=== PATIENT | female | born 1950 | race Caucasian/White ===

== ENCOUNTER 2016-12-04 00:01 | Inpatient (IN) | payer MEDICARE, OTHER ==
[~2016-12-04] VITALS: Ht 154.9 cm; Wt 51.2 kg
--- NOTE | ~2016-12-04 | OR ---
PATIENT'S NAME: CARLYN KENT [facility] AGE: 66 Y [address] ROOM: [place] [address] LOCATION: CU ADMIT DATE: 12/04/2016 OR/Procedure Report DISCHARGE DATE: FAMILY PHYSICIAN: Bharathi Carreno PA-C ATTENDING PHYSICIAN: MARCEL MCKENZIE V SURGEON: Gabriela Boyd MD TRAUMA THERAPIST: DATE OF PROCEDURE: 12/12/2016 PROCEDURE NAME: Rapid sequence endotracheal intubation. INDICATION: Worsening acute respiratory failure in a patient with CMV pneumonitis. PROCEDURE SUMMARY: Verbal permit was obtained prior to the procedure. The patient's oxygen saturations were in the low 90s, upper 80s, while on 90% high- flow oxygen. Adequate sedation and analgesia was obtained with 5 mg of Versed, 200 mcg of fentanyl, and 10 mg of etomidate. A GlideScope with a #3 blade was inserted into the oropharynx, at which time the vocal cords were visualized. A 7.5-Pashto endotracheal tube was inserted and visualized going through the vocal cords. The stylet was removed. The end-tidal CO2 was in the mid 40s as measured by a CO2 meter. Breath sounds were heard in both lung cast equally. The endotracheal tube was placed at 24 cm, measured at the teeth. COMPLICATIONS: None. ESTIMATED BLOOD LOSS: None. GABRIELA BOYD MD [facility]/modl /[id number] d: 12/12/162219 t: 12/15/16 0712, OPERATIVE SUMMARY
--- NOTE | ~2016-12-04 | CON ---
PATIENT'S NAME: CARLYN KENT [facility] AGE: 66 Y [address] ROOM: [place] [address] LOCATION: GPCU ADMIT DATE: 12/04/2016 Consultation DISCHARGE DATE: FAMILY PHYSICIAN: Bharathi Carreno PA-C ATTENDING PHYSICIAN: MARCEL MCKENZIE V DATE OF CONSULTATION: 12/07/2016 REFERRING PHYSICIAN: Akiko Duenas MD REASON FOR CONSULTATION: Sacral pressure ulcer and a left lower extremity wound. HISTORY OF PRESENT ILLNESS: This is a 66-year-old female patient who was admitted to [facility] with acute hypoxic respiratory failure and pneumonia. She has a significant history of steroid-dependent rheumatoid arthritis, chronic pancreatitis, chronic pain syndrome, steroid-induced diabetes, essential hypertension, and pyoderma gangrenosum. Her sacral pressure ulcer has been present since 11/21/2016. She has been seeing [facility]. She normally wears a Promogran Sandhya antimicrobial dressing to the site. She reports the site has improved significantly since its first appearance. She has a history of pyoderma gangrenosum and had a skin graft by Dr. Pickens last summer to her right lower extremity. Currently, her pyoderma gangrenosum to her left lower extremity has also been treated by [facility]. She uses Santyl and a foam dressing. She also notes improvement in those ulcers. They have been present for "months." The patient is denying pain, however, reports she does have a pain patch and uses hydrocodone at home. She is denying chest pain. She admits to shortness of breath. She admits to fatigue. She lives in [place]. PAST MEDICAL HISTORY: 1. Rheumatoid arthritis, on chronic prednisone. 2. Chronic pancreatitis. 3. Chronic pain with neurostimulator. 4. Pyoderma gangrenosum. 5. Steroid-induced diabetes. 6. Essential hypertension. 7. Migraines. 8. Hypercholesteremia. 9. Osteoarthritis. 10. Heartburn. 11. Anxiety. PATIENT'S NAME: CARLYN KENT [facility] AGE: 66 Y [address] ROOM: [place] [address] LOCATION: GPCU ADMIT DATE: 12/04/2016 Consultation DISCHARGE DATE: FAMILY PHYSICIAN: Bharathi Carreno PA-C ATTENDING PHYSICIAN: MARCEL MCKENZIE V 12. Hypothyroidism. PAST SURGICAL HISTORY: 1. section x5. 2. Lumbar back surgery x2. 3. Cholecystectomy. 4. Removal of stone from common bile duct. 5. Breast reduction. 6. Bilateral carpal tunnel surgery. 7. Skin grafting to right lower extremity. FAMILY HISTORY: The patient believes her mother suffered from rheumatoid arthritis. SOCIAL HISTORY: The patient lives in [place]. She is disabled. She is a former smoker. She denies alcohol or illicit drug use. ALLERGIES: CODEINE, LISINOPRIL, AND MORPHINE. CURRENT MEDICATIONS: Please refer to the medication administration record. REVIEW OF SYSTEMS: A 10-point review of systems was completed and all were negative except as mentioned above in the HPI. PHYSICAL EXAMINATION: VITAL SIGNS: Temperature 96.9, pulse 101, respirations 18, blood pressure 130/76, and oxygen 94%. Height 5 feet 1 inch and weight 49.1 kg. GENERAL: The patient is alert and orientated x3. Appears pale. Short of breath on exertion. Thin in nature. HEENT: Head; normocephalic and atraumatic. Oral mucosa intact. NEUROLOGIC: Grossly nonfocal. HEART: Tachycardia noted. GASTROINTESTINAL: Abdomen is soft and nontender. EXTREMITIES: +2 pedal pulses. No edema noted. Feet are cool to touch. Capillary refill intact. MUSCULOSKELETAL: Obvious joint abnormalities from rheumatoid arthritis. SKIN: Left sacrum has a large superficial stage III pressure ulcer. The entire area measures 12.0 cm width x 9.5 cm length x 0.2 cm depth. The majority of the wound bed is covered with adherent yellow slough. Hoskins tissue is noted to the wound margins. Periwound is intact. There is a small amount of serous exudate noted. No induration or fluctuance noted. No odor. No PATIENT'S NAME: CARLYN KENT [facility] AGE: 66 Y [address] ROOM: [id number] [place], [place] [address] LOCATION: GPCU ADMIT DATE: 12/04/2016 Consultation DISCHARGE DATE: FAMILY PHYSICIAN: Bharathi Carreno PA-C ATTENDING PHYSICIAN: MARCEL MCKENZIE V purulent exudate. To the patient's left anterior lower leg, she has 2 small pyoderma ulcers. The distal, larger ulcer, measures 1.0 cm width x 2.0 cm length x 0.2 cm depth. Wound bed is covered with a dry yellow slough with a small amount of moist pink tissue. Periwound is intact. No purulence noted. Heels intact. LABORATORY DATA: Sodium 136, potassium 3.3, chloride 100, bicarbonate 29, BUN 13, creatinine 0.4, and glucose 152. Hemoglobin 8.6, white blood cell count 7.4, hematocrit 27.1, and platelets 247,000. Wound culture showed no bacteria. ASSESSMENT AND PLAN: Again, this is a 66-year-old female patient who was admitted to [facility] with acute hypoxic respiratory failure and pneumonia. Wound Care was consulted to evaluate and assess a sacral pressure ulcer and left lower extremity pyoderma ulcers. 1. Stage III full-thickness pressure ulcer to the left sacrum present on admission to [facility]. The patient uses Promogran Sandhya. We currently do not carry that dressing. We discussed different options. The patient did have an Allevyn foam dressing applied to this site on Thursday. She is comfortable in continuing that. I did change the Allevyn dressing. The patient is to follow up with [facility] on discharge. She is to continue pressure redistribution measures and turn herself in bed q.2 hours side to side. She is well aware and able to turn herself in bed. Dietary is on board. The patient is getting supplements with each meal. 2. Pyoderma gangrenosum to the left lower extremity. Improving per patient. We will apply Aquacel and a Mepilex foam dressing, changing twice per week. The patient is to continue to follow up with [facility] on discharge. 3. Rheumatoid arthritis. The patient on prednisone. Hospitalist is managing. 4. Severe protein-calorie malnutrition. Dietary is on board. The patient is getting supplements with meals. 5. Acute hypoxic respiratory failure. Hospitalist is managing. Pulmonology on board. I would like to thank Dr. Duenas for this consultation. CHERRI LOPEZ APRN FOR MD DHARA PENA/modl PATIENT'S NAME: CARLYN KENT [facility] AGE: 66 Y [address] ROOM: [id number] [place] [id number] [facility] ADMIT DATE: 12/04/2016 Consultation DISCHARGE DATE: FAMILY PHYSICIAN: Bharathi Carreno PA-C ATTENDING PHYSICIAN: MARCEL MCKENZIE V /[id number] d: 12/08/16 1302 t: 12/19/16 1812, CONSULTATION REPORT
--- NOTE | ~2016-12-04 | CON ---
PATIENT'S NAME: CARLYN KENT [facility] AGE: 66 Y [address] ROOM: [address] [place], [place] [address] LOCATION: GICU ADMIT DATE: 12/04/2016 Consultation DISCHARGE DATE: 12/16/2016 FAMILY PHYSICIAN: Bharathi Carreno PA-C ATTENDING PHYSICIAN: Saman Urena DATE OF CONSULTATION: 12/04/2016 REFERRING PHYSICIAN: Alan Ray DO INDICATION: Abnormal CT with new interstitial findings. SUBJECTIVE: This is a 66-year-old female, who has been ill with low blood sugars, fatigue, weight loss, poor appetite for over a month now, who was transferred here for a higher level of care from [place] after CT of the abdomen done for nausea on day 2 of her hospital stay showed new lower lung infiltrates. She has extensive history of rheumatoid arthritis since age of 41, which she was followed by Dr. Cottrell for and also a history of long-term immunosuppression. Most recently, her rheumatoid arthritis regimen has been Plaquenil, prednisone, and she recently had Remicade infusions initiated. She feels her issues all started when her prednisone dose was adjusted a month ago. She has a history of seeing a quill collector, which she last saw 2 years ago. She has a history of lung nodules with biopsy performed on June 07, 2014, showing no malignancy. The patient reports that she was told the nodules were all secondary to her rheumatoid arthritis, and she has not had any further followup. She denies any history of asthma, COPD, PE, DVT. She is a smoker for 30 years and quit 20 years ago. She denies any history of PFTs, although her record shows she might have had some in [place]. She reports that she was recently started on oxygen at night and reports excessive daytime sleepiness but feels she had a sleep study done, that was normal recently. She has noted worsening shortness of breath, which her family feels has been significant over the last month. She denies any cough, wheezing, hemoptysis, or edema. She does not use inhalers at home. She was noted to be febrile starting yesterday with a temperature of 102. PAST MEDICAL HISTORY: 1. Rheumatoid arthritis. 2. Immunosuppression. 3. Pyoderma gangrenosum. 4. Chronic pancreatitis. 5. Chronic pain with a neurostimulator. 6. History of lung nodules with history of lung biopsy. 7. Diabetes. 8. Hypertension. PATIENT'S NAME: CARLYN KENT [facility] AGE: 66 Y [address] ROOM: [id number] [place], [place] [address] LOCATION: GICU ADMIT DATE: 12/04/2016 Consultation DISCHARGE DATE: 12/16/2016 FAMILY PHYSICIAN: Bharathi Carreno PA-C ATTENDING PHYSICIAN: Saman Urena ALLERGIES: SEE MAR. MEDICATIONS: See DEC. FAMILY HISTORY: Negative for heart disease or lung disease. SOCIAL HISTORY: She has a history of tobacco use for 30 years and quit 20 years ago. She denies any alcohol use. REVIEW OF SYSTEMS: A 12-point review of systems is negative except for what is noted in the HPI. PHYSICAL EXAMINATION: VITAL SIGNS: Blood pressure 137/58, pulse 83, respirations 14, temp 97.6. She is 93% on 3 L nasal cannula. GENERAL: This is a 66-year-old, well developed, well nourished, ill and elderly appearing female, in no acute distress at the time of exam. She is alert and oriented x3. HEENT: Head: Normocephalic and atraumatic. Eyes are clear. NECK: Supple. No adenopathy. No carotid bruits or JVD. LUNGS: Bilateral crackles without wheezes. HEART: Regular rate and rhythm without murmur, gallop, or rub. ABDOMEN: Soft, nontender, nondistended. Bowel sounds x4. EXTREMITIES: No cyanosis, clubbing, or edema. DIAGNOSTIC DATA: Includes sodium 136, potassium 3.1, BUN 8, creatinine 0.5, glucose 63, calcium 7.3. WBC 7.9, hemoglobin 8.5, hematocrit 26.5, platelets 274. ASSESSMENT: 1. Abnormal chest CT with bilateral infiltrates and cystic lesion, which were personally reviewed by Dr. Boyd. This is concerning for atypical infection versus rheumatoid arthritis versus interstitial lung disease. 2. Acute respiratory failure due to abnormal chest CT with bilateral infiltrates and cystic lesion. 3. Rheumatoid arthritis, on multiple medications. 4. Chronic immunosuppression. 5. High-risk medications. 6. Nocturnal hypoxia without obstructive sleep apnea. 7. History of restrictive lung disease and pulmonary fibrosis. PATIENT'S NAME: CARLYN KENT [facility] AGE: 66 Y [address] ROOM: [place] [address] LOCATION: GICU ADMIT DATE: 12/04/2016 Consultation DISCHARGE DATE: 12/16/2016 FAMILY PHYSICIAN: Bharathi Carreno PA-C ATTENDING PHYSICIAN: Saman Urena PLAN: We will plan for bronchoscopy with BAL and transbronchial biopsies. Indications, risks, benefits, and alternatives were discussed with the patient, who agreed to the procedure. We will have her be n.p.o. after midnight. She will continue with her rheumatoid arthritis medications, IV antibiotics, incentive spirometer, and flutter valve. Titrate FiO2 as tolerated. Further recommendations will be made after the results of the procedure available. Thank you for the consult and opportunity to participate in this patient's care. CHERRI LR APRN FOR GABRIELA BOYD MD [facility]/modl /[id number] d: 12/29/162126 t: 12/30/16 0932, CONSULTATION REPORT
--- NOTE | ~2016-12-04 | CON ---
PATIENT'S NAME: CARLYN KENT [facility] AGE: 66 Y [address] ROOM: [place] [address] LOCATION: GICU ADMIT DATE: 12/04/2016 Consultation DISCHARGE DATE: 12/16/2016 FAMILY PHYSICIAN: Bharathi Carreno PA-C ATTENDING PHYSICIAN: Saman Urena DATE OF CONSULTATION: 12/16/2016 REFERRING PHYSICIAN: Alan Ray DO PALLIATIVE MEDICINE CONSULT LOCATION: ICU Room [facility]. REFERRING PROVIDER: Dannie Quinones MD CHIEF COMPLAINT: Palliative care referral for family support and goals of care discussion. HISTORY OF PRESENT ILLNESS: The patient is a 66-year-old female, who is admitted from the [facility] with hypoxia, being treated for pneumonia. The patient was initially treated on the progressive care unit, but due to changes in respiratory status, she did require intubation on December 12, 2016. The patient does have a long history of rheumatoid arthritis and is steroid dependent as well as chronic pancreatitis. Of note while in [place], the patient did undergo a CT scan of her abdomen and pelvis to rule out pancreatitis. This was negative, but the CT scan did show a new interstitial left lung infiltrate. 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 Due to her chronic immunosuppression and overall frail condition, her prognosis was quite guarded. Family did report that the patient had been living alone, and they had noted she had been declining over the last 2 to 3 months with increasing fatigue, weakness, weight loss, and poor appetite. At the time of consultation, the patient is sedated with Versed and is on Nimbex drip due to poor tolerance of mechanical ventilation throughout the night. She is not requiring any vasopressors at this time and has quite a large number of family members at bedside at this time. Due to her poor prognosis, Palliative Care has been consulted to assist family with goals of care discussion. PREVIOUS OPERATIONS: 1. x5. 2. TVH. 3. Tennis elbow repair. PATIENT'S NAME: CARLYN KENT [facility] AGE: 66 Y [address] ROOM: [place] [address] LOCATION: GICU ADMIT DATE: 12/04/2016 Consultation DISCHARGE DATE: 12/16/2016 FAMILY PHYSICIAN: Bharathi Carreno PA-C ATTENDING PHYSICIAN: Saman Urena 4. Lumbar back surgery x2. 5. Cholecystectomy. 6. Stone removal from the common bile duct. 7. Breast reduction. 8. Bilateral carpal tunnel surgery. PAST MEDICAL HISTORY: 1. Long-standing rheumatoid arthritis, is steroid dependent. 2. Pyoderma gangrenosum. 3. Chronic pancreatitis. 4. Chronic pain with neurostimulator. 5. Steroid dependence. 6. Sacral decubitus pressure ulcer and left walton decubitus ulcer, both present on admission. 7. Steroid-induced diabetes mellitus. 8. History of lung nodules. 9. Osteoporosis. 10. Hypertension. MEDICATIONS: Please see current MAR. ALLERGIES: TO LISINOPRIL, MORPHINE, AND CODEINE. SOCIAL HISTORY: The patient is . She lives in her own home with her kids checking and assisting with getting to doctor's appointments. Does have a distant history of tobacco use. FAMILY HISTORY: Her grandmother had colon cancer. Her father had heart disease. REVIEW OF SYSTEMS: As per HPI. Otherwise unobtainable as the patient is sedated and unresponsive in the intensive care unit. PHYSICAL EXAMINATION: VITAL SIGNS: Blood pressure 116/79, heart rate 110, temperature 97.4, respirations 25, O2 saturations 100% on 100% FiO2 on the ventilator. GENERAL: Reveals a frail, chronically ill-appearing, elderly female, who is lying in the intensive care unit. She is sedated and on paralytics. Does not appear to be in any acute distress. Does occasionally have overbreathe the vent slightly. HEENT: Normocephalic, atraumatic. Sclerae nonicteric. Conjunctivae pink. PATIENT'S NAME: CARLYN KENT [facility] AGE: 66 Y [address] ROOM: [place] [address] LOCATION: [facility] ADMIT DATE: 12/04/2016 Consultation DISCHARGE DATE: 12/16/2016 FAMILY PHYSICIAN: Bharathi Carreno PA-C ATTENDING PHYSICIAN: Saman Urena Tongue and mucous membranes are dry. She does have a white-shaped facies. CARDIOVASCULAR: Heart tones are regular rate and rhythm. She is tachycardic. RESPIRATORY: Respirations are nonlabored. She does occasionally overbreathe the ventilator. Lung sounds are clear and diminished throughout. GASTROINTESTINAL: Abdomen is soft, nondistended. Bowel sounds are hypoactive. GENITOURINARY: Swartz catheter is intact with adequate amounts of yellow urine. MUSCULOSKELETAL: No significant joint deformities. Does have small joint abnormalities due to rheumatoid arthritis of her hands. There is no clubbing or cyanosis. She does have generalized 1 to 2+ edema. SKIN: Cool and dry. She does have a dressing to her left lower extremity. I did not examine her backside as I am told that she has a decubitus ulcer on her left leg as well as her sacrum. NEUROLOGICAL: The patient is on a paralytic at this time. IMPRESSION AND PLAN: 1. Respiratory failure. The patient is currently on the ventilator. 2. Frailty. 3. Family emotional distress. 4. Code status. The patient was recently changed to a DNR status earlier today. She does have healthcare power of traffic law attorney on the chart. I introduced the role of palliative care to the family for support as well as symptom management and goals of care conversation. Family tells me that the patient's condition had been declining over the past couple of months and that she would not want all of this done. They tell me how she had initially refused intubation but did eventually agree for their sake. This does cause them quite a bit of distress. Family does tell me that they are wishing for extubation and for nature to take its course but are waiting for more family to come in later today and tomorrow before extubating. I provided education and support to them on compassionate extubation and medications we could use to help her remain comfortable. At this point, family is wanting to continue with our current treatment but do want to stop blood draws and anything that would make her uncomfortable until the rest of the family gets here. I did call pastoral care per family's request. We will continue to support the patient and family throughout the night and assist with compassionate extubation in the morning as per family's wishes. Provided emotional support and active listening. Answered their questions to the best of my ability. At this point, the goal is for the patient to remain comfortable until rest of the family gets here and then we will plan on compassionate extubation. Total visit was 35 minutes. Greater than 50% of this time was spent providing education and counseling. Thank you for allowing me to assist the patient and family. PATIENT'S NAME: CARLYN KENT [facility] AGE: 66 Y [address] ROOM: [address] [place] [id number] LOCATION: GICU ADMIT DATE: 12/04/2016 Consultation DISCHARGE DATE: 12/16/2016 FAMILY PHYSICIAN: Bharathi Carreno PA-C ATTENDING PHYSICIAN: Saman Urena HOWARD CRANE, CULLEN FOR GABRIELA BOYD MD [facility]/modl /[id number] CC: Dannie Quinones MD d: 12/23/16 2107 t: 12/24/16 1422, CONSULTATION REPORT
--- NOTE | ~2016-12-04 | HP ---
PATIENT'S NAME: CARLYN KENT [facility] AGE: 66 Y [address] ROOM: [id number] [place], [place] [address] LOCATION: GPCU ADMIT DATE: 12/04/2016 History & Physical DISCHARGE DATE: FAMILY PHYSICIAN: Bharathi Carreno PA-C ATTENDING PHYSICIAN: MARCEL MCKENZIE V DATE OF SERVICE: 12/04/2016 CHIEF COMPLAINT: Transfer for higher level of care. HISTORY OF PRESENT ILLNESS: The patient is a 66-year-old female with extremely complex past medical history. It is most pertinent for a long-standing rheumatoid arthritis with steroid dependence. It is also pertinent for chronic pancreatitis with pancreatic enzyme repletion as well as pyoderma gangrenosum. The patient has had a recently complicated course in [place] where she developed increased weakness and fatigue after having been started on metformin and Amaryl for treatment of her steroid-induced diabetes. This caused her to become profoundly hypoglycemic and she spent several days in the hospital getting treated for hypoglycemia having her medications adjusted. She went home, but remained weak and quite short of breath. She returned to the hospital today. She was started on steroids for a suspected adrenal insufficiency. However, a CAT scan of her abdomen and pelvis were done to rule out pancreatitis. The pancreatitis was negative, but the CAT scan did show a new interstitial left lung infiltrate. A chest x-ray confirmed diffuse presence of this interstitial opacity on the left side with some involvement of the right. Of interest, the patient has had prior nodular findings on her chest CT in 2013. She has undergone a quite a detailed workup, which included a biopsy of one of these nodules. The biopsy report is not available, but the summary is sent over with the patient, where the nodule had a fibrin nodule tissue but no fungal or neoplastic involvement. Dr. Ellington, the patient's order to delivery supervisor at that point felt that this nodule was related to her rheumatoid arthritis. The patient was also found to be quite hypoxic on her visit to her primary care provider today with saturations in the 70s. She does endorse shortness of breath and generalized lack of energy. Here, she is on 3 liters nasal cannula and when I take that O2 off she desats down into the 80s. She does have a distant history of tobacco use, but was never diagnosed with COPD. REVIEW OF SYSTEMS: All systems have been reviewed and also positive for chronic wound one on the PATIENT'S NAME: CARLYN KENT [facility] AGE: 66 Y [address] ROOM: [place] [address] LOCATION: GPCU ADMIT DATE: 12/04/2016 History & Physical DISCHARGE DATE: FAMILY PHYSICIAN: Bharathi Carreno PA-C ATTENDING PHYSICIAN: MARCEL MCKENZIE V coccyx and one on the left walton, which has been found to be pyoderma gangrenosum in the past. She is currently seeing a cyber systems operations specialist as outpatient. All other systems have been reviewed and negative aside from pertinent positives mentioned above. PAST MEDICAL HISTORY: Detailed past medical history is significant for: 1. Long-standing rheumatoid arthritis recently, the patient has been switched from Humira to Rituxan. She is still on multiple other agents including prednisone and leflunomide. 2. Pyoderma gangrenosum. 3. Chronic pancreatitis. 4. Chronic pain with a neurostimulator. 5. Steroid dependency. 6. Sacral decubitus present on admission. 7. Left walton decubitus present on admission. 8. History of pyoderma gangrenosum on the opposite limb requiring skin grafting. 9. Steroid induced diabetes. 10. History of lung nodules. 11. Osteopenia/osteoporosis. 12. Essential hypertension. PAST SURGICAL HISTORY: Significant for: 1. Five C-sections. 2. Placement of a neurostimulator. 3. Instrumentation of her lumbar spine. CURRENT MEDICATIONS: 1. Metformin. 2. Synthroid. 3. Benicar. 4. Hydroxychloroquine. 5. Sertraline. 6. Zopiclone. 7. Biotin. 8. Vitamin E. 9. Prednisone. 10. Leflunomide. 11. TriCor. 12. Omeprazole. 13. Fosamax. 14. Bystolic. 15. B12. PATIENT'S NAME: CARLYN KENT [facility] AGE: 66 Y [address] ROOM: [place] [address] LOCATION: GPCU ADMIT DATE: 12/04/2016 History & Physical DISCHARGE DATE: FAMILY PHYSICIAN: Bharathi Carreno PA-C ATTENDING PHYSICIAN: MARCEL MCKENZIE V 16. Aspirin. 17. Elizabeth. 18. Voltaren. 19. Creon. SOCIAL HISTORY: Significant for a distant use of tobacco. FAMILY HISTORY: Reviewed and is noncontributory due to known underlying etiology for her presentation. PHYSICAL EXAMINATION: VITAL SIGNS: Temperature 97.5, pulse is 86, respirations 21, blood pressure 147/75, and saturating 96% on 3 liters nasal cannula desaturating into the mid 80s on room air. GENERAL: Appears as a pale chronically ill, elderly female, in no acute distress. EYE: Shows small palpebra openings with extraocular muscles intact. NEUROLOGICAL: Grossly nonfocal. ENT: Reveals cushingoid face appearance with submandibular fat pads. LYMPHATIC: Shows no cervical lymphadenopathy. ENDOCRINE: Shows no thyromegaly. LUNGS: Significant for expiratory crackles approximately two-thirds up from the left base, also mildly auscultated at the right apex. HEART: Reveals regular rate and rhythm, but pronounced S2. There is no lower extremity edema. JVD cannot be appreciated. GI: Abdomen is soft, nontender, and nondistended. : No costovertebral angle tenderness. VASCULAR: 2+ pedal pulses. MUSCULOSKELETAL: Reveals multiple small joints abnormalities of rheumatoid arthritis. PSYCHIATRIC: Reveals appropriate mood, cognition, affect. LABORATORY STUDIES: Review of studies from outside facility is significant for a CAT scan of abdomen and pelvis, which demonstrates fibrotic/atelectatic changes and pleural thickening in both lungs, new nonspecific ground-glass opacities in the left lower lobe and lingula, chronic pancreatitis, nephrolithiasis, and cholecystectomy. Chest x-ray demonstrate volume loss and diffuse interstitial infiltrate involving left lung there appears to be some involvement of the right upper lobe. ASSESSMENT AND PLAN: This is an extremely complicated 66-year-old female who was transferred to PATIENT'S NAME: CARLYN KENT [facility] AGE: 66 Y [address] ROOM: [address] [address] LOCATION: GPCU ADMIT DATE: 12/04/2016 History & Physical DISCHARGE DATE: FAMILY PHYSICIAN: Bharathi Carreno PA-C ATTENDING PHYSICIAN: MARCEL MCKENZIE V [facility] for higher level of care. We will address the following issues while she is here: 1. Acute hypoxic respiratory failure with interstitial changes on the CAT scan and x-ray. This could be infectious as well as autoimmune, related to her long-standing rheumatoid arthritis. Given the fact, the patient is immunocompromised, I will initiate treatment for a possible pneumonia as well as an atypical pneumonia. We will begin with Levaquin. We will get a Pulmonology consultation in the morning. We will provide her with supplemental oxygen. Additional management will depend on recommendations from Pulmonology consult. 2. Severe protein-calorie malnutrition. We will get a nutrition consult and try on supplement the patient's nutritional status. 3. Rheumatoid arthritis. We will have to continue her on her current immunosuppressive until her lung findings are better characterized. 4. Steroid dependency. On the admission, the patient's Accu-Chek was in the 60s which I believe is quite low for her. I will maintain her on higher dose of steroids while she is in acute phase of the disease. I do not see significant utility in doing a cosyntropin stim test as she is most definitely adrenocortically suppressed. 5. [id number]-[id number], steroid derived type 2 diabetes. I will discontinue her metformin as it is probably contributing to her anorexia. For now, we will just monitor the patient's Accu-Cheks and depending on whether to analyze will decide on how to treat her. 6. Deep venous prophylaxis, will be pharmacologic. 7. GI prophylaxis will be pharmacologic as well with Protonix given her chronic steroid use. Additional management will depend on clinical course. Time dedicated to this patient's encounter is 45 minutes. MD RAFFY VILLA/tara /[id number] D: T: 953 HISTORY & PHYSICAL
--- NOTE | ~2016-12-04 | ENPV ---
Vascular Lower Extremities DVT Study Procedure Demographics Patient Name CARLYN KENT Date of Study 12/15/2016 Patient Number [id number] Gender Female Date of 1950 Age 66 Visit Number [id number] Height 61 Accession Number [id number] Weight 108 Referring Interpreting Vargas Rosa MD Physician Physician Physician Ordering Physician Romel Rodas MD [employer] Dexter Dominique T, [facility] Conclusions Summary There is acute deep vein thrombosis in the right distal popliteal/trunk vein(s). This is not fully occlusive. There is thrombus within a small vein in the calf as well. Procedure Type of Study: Veins:Lower Extremities DVT Study, Venous Duplex Lower Extremity Bilateral. Indications for Study:Extended bedrest. Patient Status:Routine. Study Location:Inpatient Portable. Technical Quality:Adequate visualization. Velocities are measured in cm/s ; Diameters are measured in cm Right Lower Extremities DVT Study Measurements Right 2D and Doppler Measurements + + + + +------+------+ + !Location !Visualized!Compressibility!Thrombosis!Signal!Reflux!Reflux ! ! ! ! ! ! ! !(sec) ! + + + + +------+------+ + !GSV Thigh !Yes !Yes !None !Phasic!No ! ! + + + + +------+------+ + !Common !Yes !Yes !None !Phasic!No ! ! !Femoral ! ! ! ! ! ! ! + + + + +------+------+ + !Prox !Yes !Yes !None !Phasic!No ! ! !Femoral ! ! ! ! ! ! ! + + + + +------+------+ + !Mid Femoral!Yes !Yes !None !Phasic!No ! ! + + + + +------+------+ + !Dist !Yes !Yes !None !Phasic!No ! ! !Femoral ! ! ! ! ! ! ! + + + + +------+------+ + !Popliteal !Yes !Yes !Acute !Phasic!No ! ! + + + + +------+------+ + !Gastroc !Yes !Yes !None !Phasic!No ! ! + + + + +------+------+ + !PTV !Yes !Yes !None !Phasic!No ! ! + + + + +------+------+ + !Peroneal !Yes !Yes !None !Phasic!No ! ! + + + + +------+------+ + Left Lower Extremities DVT Study Measurements Left 2D and Doppler Measurements + + + + +------+------+ + !Location !Visualized!Compressibility!Thrombosis!Signal!Reflux!Reflux ! ! ! ! ! ! ! !(sec) ! + + + + +------+------+ + !GSV Thigh !Yes !Yes !None !Phasic!No ! ! + + + + +------+------+ + !Common !Yes !Yes !None !Phasic!No ! ! !Femoral ! ! ! ! ! ! ! + + + + +------+------+ + !Prox !Yes !Yes !None !Phasic!No ! ! !Femoral ! ! ! ! ! ! ! + + + + +------+------+ + !Mid Femoral!Yes !Yes !None !Phasic!No ! ! + + + + +------+------+ + !Dist !Yes !Yes !None !Phasic!No ! ! !Femoral ! ! ! ! ! ! ! + + + + +------+------+ + !Popliteal !Yes !Yes !None !Phasic!No ! ! + + + + +------+------+ + !Gastroc !Yes !Yes !None !Phasic!No ! ! + + + + +------+------+ + !PTV !Yes !Yes !None !Phasic!No ! ! + + + + +------+------+ + !Peroneal !Yes !Yes !None !Phasic!No ! ! + + + + +------+------+ + Signature dtt: Bharathi Kaye dtd: 12/15/16 1041 Physician Self Judy
--- NOTE | ~2016-12-04 | CON ---
PATIENT'S NAME: CARLYN KENT [facility] AGE: 66 Y [address] ROOM: [place] [address] LOCATION: GICU ADMIT DATE: 12/04/2016 Consultation DISCHARGE DATE: 12/16/2016 FAMILY PHYSICIAN: Bharathi Carreno PA-C ATTENDING PHYSICIAN: Saman Urena DATE OF CONSULTATION: 12/16/2016 REFERRING PHYSICIAN: Alan Ray DO PALLIATIVE MEDICINE CONSULT LOCATION: ICU Room [facility]. REFERRING PROVIDER: Dannie Quinones MD CHIEF COMPLAINT: Palliative care referral for family support and goals of care discussion. HISTORY OF PRESENT ILLNESS: The patient is a 66-year-old female, who is admitted from the [facility] with hypoxia, being treated for pneumonia. The patient was initially treated on the progressive care unit, but due to changes in respiratory status, she did require intubation on December 12, 2016. The patient does have a long history of rheumatoid arthritis and is steroid dependent as well as chronic pancreatitis. Of note while in [place], the patient did undergo a CT scan of her abdomen and pelvis to rule out pancreatitis. This was negative, but the CT scan did show a new interstitial left lung infiltrate. 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 Due to her chronic immunosuppression and overall frail condition, her prognosis was quite guarded. Family did report that the patient had been living alone, and they had noted she had been declining over the last 2 to 3 months with increasing fatigue, weakness, weight loss, and poor appetite. At the time of consultation, the patient is sedated with Versed and is on Nimbex drip due to poor tolerance of mechanical ventilation throughout the night. She is not requiring any vasopressors at this time and has quite a large number of family members at bedside at this time. Due to her poor prognosis, Palliative Care has been consulted to assist family with goals of care discussion. PREVIOUS OPERATIONS: 1. x5. 2. TVH. 3. Tennis elbow repair. PATIENT'S NAME: CARLYN KENT [facility] AGE: 66 Y [address] ROOM: [place] [address] LOCATION: GICU ADMIT DATE: 12/04/2016 Consultation DISCHARGE DATE: 12/16/2016 FAMILY PHYSICIAN: Bharathi Carreno PA-C ATTENDING PHYSICIAN: Saman Urena 4. Lumbar back surgery x2. 5. Cholecystectomy. 6. Stone removal from the common bile duct. 7. Breast reduction. 8. Bilateral carpal tunnel surgery. PAST MEDICAL HISTORY: 1. Long-standing rheumatoid arthritis, is steroid dependent. 2. Pyoderma gangrenosum. 3. Chronic pancreatitis. 4. Chronic pain with neurostimulator. 5. Steroid dependence. 6. Sacral decubitus pressure ulcer and left walton decubitus ulcer, both present on admission. 7. Steroid-induced diabetes mellitus. 8. History of lung nodules. 9. Osteoporosis. 10. Hypertension. MEDICATIONS: Please see current MAR. ALLERGIES: TO LISINOPRIL, MORPHINE, AND CODEINE. SOCIAL HISTORY: The patient is . She lives in her own home with her kids checking and assisting with getting to doctor's appointments. Does have a distant history of tobacco use. FAMILY HISTORY: Her grandmother had colon cancer. Her father had heart disease. REVIEW OF SYSTEMS: As per HPI. Otherwise unobtainable as the patient is sedated and unresponsive in the intensive care unit. PHYSICAL EXAMINATION: VITAL SIGNS: Blood pressure 116/79, heart rate 110, temperature 97.4, respirations 25, O2 saturations 100% on 100% FiO2 on the ventilator. GENERAL: Reveals a frail, chronically ill-appearing, elderly female, who is lying in the intensive care unit. She is sedated and on paralytics. Does not appear to be in any acute distress. Does occasionally have overbreathe the vent slightly. HEENT: Normocephalic, atraumatic. Sclerae nonicteric. Conjunctivae pink. PATIENT'S NAME: CARLYN EKNT [facility] AGE: 66 Y [address] ROOM: [place] [address] LOCATION: [facility] ADMIT DATE: 12/04/2016 Consultation DISCHARGE DATE: 12/16/2016 FAMILY PHYSICIAN: Bharathi Carreno PA-C ATTENDING PHYSICIAN: Saman Urena Tongue and mucous membranes are dry. She does have a white-shaped facies. CARDIOVASCULAR: Heart tones are regular rate and rhythm. She is tachycardic. RESPIRATORY: Respirations are nonlabored. She does occasionally overbreathe the ventilator. Lung sounds are clear and diminished throughout. GASTROINTESTINAL: Abdomen is soft, nondistended. Bowel sounds are hypoactive. GENITOURINARY: Swartz catheter is intact with adequate amounts of yellow urine. MUSCULOSKELETAL: No significant joint deformities. Does have small joint abnormalities due to rheumatoid arthritis of her hands. There is no clubbing or cyanosis. She does have generalized 1 to 2+ edema. SKIN: Cool and dry. She does have a dressing to her left lower extremity. I did not examine her backside as I am told that she has a decubitus ulcer on her left leg as well as her sacrum. NEUROLOGICAL: The patient is on a paralytic at this time. IMPRESSION AND PLAN: 1. Respiratory failure. The patient is currently on the ventilator. 2. Frailty. 3. Family emotional distress. 4. Code status. The patient was recently changed to a DNR status earlier today. She does have healthcare power of regulatory attorney on the chart. I introduced the role of palliative care to the family for support as well as symptom management and goals of care conversation. Family tells me that the patient's condition had been declining over the past couple of months and that she would not want all of this done. They tell me how she had initially refused intubation but did eventually agree for their sake. This does cause them quite a bit of distress. Family does tell me that they are wishing for extubation and for nature to take its course but are waiting for more family to come in later today and tomorrow before extubating. I provided education and support to them on compassionate extubation and medications we could use to help her remain comfortable. At this point, family is wanting to continue with our current treatment but do want to stop blood draws and anything that would make her uncomfortable until the rest of the family gets here. I did call pastoral care per family's request. We will continue to support the patient and family throughout the night and assist with compassionate extubation in the morning as per family's wishes. Provided emotional support and active listening. Answered their questions to the best of my ability. At this point, the goal is for the patient to remain comfortable until rest of the family gets here and then we will plan on compassionate extubation. Total visit was 35 minutes. Greater than 50% of this time was spent providing education and counseling. Thank you for allowing me to assist the patient and family. PATIENT'S NAME: CARLYN KENT [facility] AGE: 66 Y [address] ROOM: [address] [place] [id number] LOCATION: GICU ADMIT DATE: 12/04/2016 Consultation DISCHARGE DATE: 12/16/2016 FAMILY PHYSICIAN: Bharathi Carreno PA-C ATTENDING PHYSICIAN: Saman Urena HOWARD CRANE, CULLEN FOR GABRIELA BOYD MD DLS/modl /[id number] CC: Dannie Quinones MD d: 12/23/16 2107 t: 03/10/17 1352, CONSULTATION REPORT
--- NOTE | ~2016-12-04 | OR ---
PATIENT'S NAME: CARLYN KENT [facility] AGE: 66 Y [address] ROOM: [place] [address] LOCATION: GPCU ADMIT DATE: 12/04/2016 OR/Procedure Report DISCHARGE DATE: FAMILY PHYSICIAN: Bharathi Carreno PA-C ATTENDING PHYSICIAN: MARCEL MCKENZIE V SURGEON: Ranulfo Lockett MD HEAD KILN OPERATOR: Maggy Elmore, central sterilization technician. DATE OF PROCEDURE: 12/05/2016 PROCEDURES PERFORMED: 1. Bronchoscopy with bronchoalveolar lavage of the lingular segment of the left upper lobe. 2. Bronchoscopy with transbronchial biopsies of the left upper lobe. INDICATIONS AND PREPROCEDURE DIAGNOSES: 1. Abnormal chest CT with cystic lesion and bilateral opacities. 2. Acute hypoxic respiratory failure. 3. Chronic immunosuppression. 4. High-risk medication use. POSTPROCEDURE DIAGNOSES: 1. Abnormal chest CT with cystic lesion and bilateral opacities. 2. Acute hypoxic respiratory failure. 3. Chronic immunosuppression. 4. High-risk medication use. CONSENT: Consent was obtained from the patient after all the indications, risks, benefits, and alternatives were explained at length. The patient verbalized understanding and signed an informed consent. DESCRIPTION OF PROCEDURE: The patient was taken to the endoscopy suite where a laryngeal mask was placed by the anesthesia team uneventfully. General anesthesia was started. The bronchoscope was advanced through the laryngeal mask and the airways were examined. Local anesthesia was obtained with lidocaine solution instillations at the level of the vocal cords, gregoria, and both bronchial trees. FINDINGS: The vocal cords had normal appearance. There was a moderate amount of clear, frothy secretions in both bronchial trees and the distal trachea. These secretions were suctioned easily without any saline aliquots. A careful examination was performed down to the subsegmental level in both bronchial trees. There were no lesions seen, except a small area of inflammation in the superior subsegment of the lingula of the left upper lobe. There was no evidence of active bleeding, old or new blood clots, and there was also no airway PATIENT'S NAME: CARLYN KENT [facility] AGE: 66 Y [address] ROOM: [place] [address] LOCATION: GPCU ADMIT DATE: 12/04/2016 OR/Procedure Report DISCHARGE DATE: FAMILY PHYSICIAN: Bharathi Carreno PA-C ATTENDING PHYSICIAN: MARCEL MCKENZIE. A bronchoalveolar lavage was performed in the lingula. 60 mL of sterile saline were instilled with return of 20 mL of slightly cloudy bronchoalveolar lavage fluid. Five transbronchial biopsies were performed from different segments of the left upper lobe using fluoroscopic guidance. There was minimal amount of bleeding that stopped without any further interventions. At the end of the procedure, the bronchoscope was withdrawn, and the patient was returned to the anesthesia team for further management. There was no evidence of bleeding at the end of the procedure. COMPLICATIONS: None. ESTIMATED BLOOD LOSS: Less than 5 mL. SPECIMENS: The bronchoalveolar lavage will be sent for microbiology and cytology studies, and the transbronchial biopsies will be sent for pathology and microbiology studies. MD GEETA KILGORE/odinl /[id number] d: 12/05/16 1656 t: 12/06/16 1035, OPERATIVE SUMMARY
--- NOTE | ~2016-12-04 | DS ---
PATIENT'S NAME: CARLYN KENT [facility] AGE: 66 Y [address] ROOM: [place] [address] LOCATION: GICU ADMIT DATE: 12/04/2016 Discharge Summary DISCHARGE DATE: FAMILY PHYSICIAN: Bharathi Carreno PA-C ATTENDING PHYSICIAN: Cesar Ford V SUMMARY ATTENDING PHYSICIAN: Saman Barboza M.D. PRIMARY CARE PHYSICIAN: None. FINAL DIAGNOSES: 1. Acute hypoxic respiratory failure. 2. CMV pneumonia. 3. Rheumatoid arthritis. 4. Chronic immunosuppression. 5. Acute anemia. 6. Diabetes mellitus type 2. 7. Right lower extremity deep vein thrombosis. 8. Left pneumothorax, status post chest tube placement. 9. Urinary tract infection. 10. Sepsis. CONSULTATIONS: 1. Pulmonology, Dr. Lockett. 2. Cardiothoracic Surgery, Dr. Ray. 3. Intensive Critical Care, Dr. Quinones. 4. Infectious Disease, Dr. Tejada. PROCEDURES: 1. Left chest tube placement by Dr. Ray. 2. Bronchoscopy by Dr. Lockett with bronchoalveolar lavage and transbronchial biopsies of the left upper lobe. 3. Rapid sequence endotracheal intubation by Dr. Lockett. REASON FOR ADMISSION: This is a 66-year-old female who was transferred for higher level of care from an outlying hospital. The patient has a history of long-standing rheumatoid arthritis with steroid dependence. She also has a history of pyoderma gangrenosum. She was initially admitted at [facility] for increased weakness and fatigue and treatment of steroid-induced diabetes and hyperglycemia. The patient was found to have a new interstitial left lung infiltrate. She was found to be hypoxic and then further transferred to [facility] for higher level of care. Please see Dr. Ford' admission H and P for further details. PATIENT'S NAME: CARLYN KENT [facility] AGE: 66 Y [address] ROOM: [place] [address] LOCATION: [facility] ADMIT DATE: 12/04/2016 Discharge Summary DISCHARGE DATE: FAMILY PHYSICIAN: Bharathi Carreno PA-C ATTENDING PHYSICIAN: Cesar Ford V DIAGNOSTIC STUDIES: Duplex ultrasound of bilateral lower extremity was done that showed acute deep vein thrombosis of the right distal popliteal or trunk veins, this was not fully occlusive. A thrombus within a small vein in the calf as well was noted. Transthoracic echocardiogram was done that showed normal left ventricular contractility. Mild LVH with normal internal dimensions were noted. Trace MR, mild AR, and mild TR was noted as well along with DC. Serial ABGs were done since the patient was intubated. Lactate was 2.6 on 12/08, it went down to 1.7 on 12/10, subsequently was 2.5 on 12/15. Serial Accu-Cheks were done for hyperglycemia and were in the range of 105 to 346. ProBNP 1326. Serial CBCs were done. White count on admission was 7.9, increased to 13.5 on 12/13 and on the day of was 11.1. Hemoglobin 8.5 on admission and 7.0 on the date of . Platelet counts were within normal range. Serial BMPs were done. The patient had hypokalemia with potassium of 3.1 on admission, which was supplemented on several different occasions. Potassium on the day of was 4.1. Kidney function tests were within normal range. Bicarb 26 on admission and 37 on the day of . Blood glucose is as mentioned above. Albumin 1.8 on admission and 3.5 on the day of . Phosphorus 1.6 on admission and 3.7 on 12/16/2016. Magnesium level was within normal range. GFR was more than 60. ESR 99. Hemoglobin A1c 5.8. EBV-PCR was negative. UA was negative for any bacteria, showed many yeast. Serum iron 62, TIBC 156, percentage saturation 40, prealbumin 9. CRP 10.9. TSH 0.658. Ferritin level 1139.90. Respiratory viral panel was done and was found to be negative. Procalcitonin level 0.11 on admission and subsequently was 0.05. CMV DNA in plasma was done and was less than 137, CMV DNA was detected by PCR technique. Legionella was not detected. CMV detected in the left upper lobe lingula. CT chest, no contrast, was done for increased hypoxia on admission and showed diffuse lung disease with mixed interstitial airspace pattern, this was new or increased versus previous. Chest x-ray was then done after a bronch and showed diffuse interstitial prominence, no pneumothorax was noted. Chest x- ray was repeated almost on a daily basis, no pneumothorax was noted. The patient was intubated on 12/12/2016, and chest x-ray showed endotracheal tube in place, diffuse reticular and reticulonodular opacity likely reflecting edema, atelectasis, or infiltrate was noted; worsening in pulmonary appearance since prior imaging was detected; gas-filled stomach noted; placement of a nasogastric tube likely recommended. Chest x-ray was then repeated on daily basis. On 12/16/2016, chest x-ray was repeated in the morning and showed large left pneumothorax. The patient then had a left chest tube placed and chest x-ray repeated showed decreased volume of the left pneumothorax since prior imaging. Diffuse reticular opacity in the parenchyma of both lungs, likely reflecting extensive edema or infiltrate and atelectasis was noted. PATIENT'S NAME: CARLYN KENT [facility] AGE: 66 Y [address] ROOM: [place] [address] LOCATION: [facility] ADMIT DATE: 12/04/2016 Discharge Summary DISCHARGE DATE: FAMILY PHYSICIAN: Bharathi Carreno PA-C ATTENDING PHYSICIAN: Cesar Ford V Chronic changes of scarring and fibrosis could also contribute to these findings. Blood cultures done on admission was negative. Urine culture showed Streptococcus anginosus and lactobacillus species. Viral specimen on BAL for left upper lobe lingula was found to be negative. BAL was positive for Stephania albicans. Normal respiratory you was noted in BAL. No acid- fast bacilli was noted in BAL. Fungal elements were not observed in BAL. Stephania albicans was positive only a couple colonies. The patient had a biopsy done of left upper lobe lingula that showed cytomegalovirus isolation. Gram stain of cultures was found to be negative and showed no growth. Left lung AFB negative. Left lung biopsy of fungal elements was negative. HOSPITAL COURSE: This is a 66-year-old female with a history of rheumatoid arthritis, who presented with a new left lung infiltrate. The patient was found to be hypoxic and then transferred to [facility]. Please see Dr. Ford' admission H and P for further details. After the patient was transferred, Pulmonology was consulted. The patient was placed on broad-spectrum antibiotics including Levaquin. Cultures were drawn. Blood cultures were negative. The patient did have a UTI, and she was placed on amoxicillin, and she finished a course of amoxicillin. Levaquin was continued during this admission. Pulmonology was consulted. Chest CT was done and findings were as above. Pulmonology, Dr. Lockett was consulted and recommended bronchoscopy with bronchioalveolar lavage. The patient underwent bronchoscopy with bronchoalveolar lavage and it was an uneventful procedure. BAL findings did not show anything. There was concern for cytomegalovirus. The patient had viremia of cytomegalovirus. Left lung biopsy was then done and the patient did show cytomegalovirus isolation in left lung biopsy. She was then started on 12/09/2016, on IV ganciclovir per Dr. Lockett. The patient was continued on ganciclovir based on Pulmonology recommendations still the day of her . I consulted with Dr. Tejada, Infectious Disease, on the day of her and was told that the IV ganciclovir would be the appropriate treatment and that ID would follow up with the patient tomorrow. The patient initially continued to do well, but on the afternoon of 12/12/2016, the patient deteriorated. Her oxygen requirements went up. Family discussion was then carried out by Dr. Lewis and Dr. Lockett. Initially, the patient did not want intubation, but family wanted intubation. The patient then agreed to undergo intubation. The patient was intubated and transferred to the ICU. She was continued on IV antibiotics and also on IV ganciclovir. Poor prognosis was then discussed on several occasions with Dr. Lockett and Dr. Quinones, Intensive Critical Care. The patient also was found to have right lower extremity DVT on 12/15/2016. She was placed on b.i.d. Lovenox. However, her hemoglobin was borderline; hemoglobin the next morning was 7.0. A transfusion was recommended, but PATIENT'S NAME: CARLYN KENT [facility] AGE: 66 Y [address] ROOM: [place] [address] LOCATION: [facility] ADMIT DATE: 12/04/2016 Discharge Summary DISCHARGE DATE: FAMILY PHYSICIAN: Bharathi Carreno PA-C ATTENDING PHYSICIAN: Cesar Ford V family refused at that point of time. We held the Lovenox that morning. On the morning of 12/16/2016, another family meeting was carried out by Dr. Quinones. Dr. Quinones recommended poor prognosis, all providers recommended poor prognosis for the patient. Family then decided to make the patient comfortable. Later that evening, Palliative Care was consulted. The patient underwent compassionate extubation per family wishes. She was then placed on comfort care. The patient at 7:09 p.m. on 12/16/2016. Pastoral Care was offered, but family refused. Family refused autopsy as well. Dandre was contacted by the nurse and recommendations are currently awaited. We will make arrangements per family wishes. DATE OF : 12/16/2016. TIME OF : 7:09 p.m. SAMAN BARBOZA MD MT/tara /[id number] d: 12/17/16 0235 t: 01/01/17 0002, DISCHARGE SUMMARY
--- NOTE | ~2016-12-04 | ECHO ---
Transthoracic Echocardiography Report (TTE) Demographics Patient Name CARLYN KENT Date of Study 12/08/2016 Patient Number [id number] Visit Number [id number] Date of 1950 Room Number G6335 Gender Female Number Age 66 year(s) Referring Wai Garvin I PAC Procurement Director Mikaela Gunn RVT Physician Cathryn Palacios MD Physician Interpreting Micha Quinones Chisel Mortiser Operator Physician Supervising Ordering Liliana Palacios MD/MLP Physician Nurse Stress Ramp Lead Conclusions Contractility Score Summary Normal Left Ventricular contractility was noted. Summary TDS. Mild LVH with normal internal dimensions and EF.WMAs are difficult to comment on. MAC. Trace MR. Mild AR. Mild TR with the pulmonary pressures in the low 50s. UT. Procedure Type of Study TTE procedure:2D Echocardiogram, M-Mode, Doppler , Color Doppler, Echo Limited w/ Contrast, Echo with Contrast. Procedure Date Date: 12/08/2016 Start: 03:06 PM Study Location: Inpatient Portable Technical Quality: Adequate visualization Indications:Shortness of breath. Appropriate Use Criteria: 9 Patient Status: Routine HR: 95 bpm BP: 141/85 mmHg M-Mode/2D Measurements LV Diastolic Dimension: 3.26 cm LV Systolic Dimension: 2.53 cm LV Septum Diastolic: 1.35 cm LV PW Diastolic: 1.37 cm AO Root Dimension: 2.4 cm Cardiac Output: 5.16 l/min AV Cusp Separation: 1.9 cm RV Diastolic Dimension: 2.29 cm LVOT: 2 cm LVOT VTI: 17.3 cm RV Base: 2.6 cm LV Stroke volume: 54.32 ml RV Length: 5.22 cm TAPSE: 2.02 cm TDI-S': 18.4 cm/s Doppler Measurements AV Peak Velocity: 1.5 m/s MV Peak E-Wave: 0.84 m/s AV Peak Gradient: 9 mmHg AV Mean Gradient: 4 mmHg MV P1/2t: 72 msec LVOT Peak Velocity: 0.89 m/s TR Velocity:3.24 m/s PV Peak Velocity: 0.81 m/s TR Gradient:41.99 mmHg PV Peak Gradient: 2.62 mmHg Estimated RAP:10 mmHg Estimated PASP: 51.99 mmHg Estimated RVSP: 52 mmHg E' Septal Velocity: 0.12 m/s E' Lateral Velocity: 0.14 m/s Findings Left Ventricle Mild concentric left ventricular hypertrophy with normal internal dimensions and EF.WMAs are difficult to comment on. Right Ventricle Normal right ventricle structure and function. Left Atrium Normal left atrial size. Right Atrium Normal right atrial size. No PFO. Mitral Valve Trace mitral regurgitation by color Doppler. Mild mitral annular calcification. Aortic Valve There is mild aortic regurgitation by color Doppler. Tricuspid Valve Mild tricuspid regurgitation by color Doppler. There is moderate pulmonary hypertension. The pulmonary pressure (RVSP) is 52 mmHg. Pulmonic Valve Trivial pulmonic valve regurgitation by color Doppler. Pericardial Effusion No evidence of pericardial effusion. Miscellaneous Visualized portions of the aortic root and ascending aorta appear normal in size. Pleural Effusion No evidence of pleural effusion. Contractility Score LV regional wall motion:(0-Non visualized 1-Normal 2-Hypokinesis 3-Akinesis 4-Dyskinesis 5-Aneurysm) Signature dtt: Stacie Muse dtd: 12/08/16 1506 Physician Self Edit
--- NOTE | ~2016-12-04 | OR ---
PATIENT'S NAME: CARLYN LLAMAS [facility] AGE: 67 Y [address] ROOM: [place] [address] LOCATION: GICU ADMIT DATE: 12/04/2016 OR/Procedure Report DISCHARGE DATE: 12/16/2016 FAMILY PHYSICIAN: Bharathi Carreno PA-C ATTENDING PHYSICIAN: Saman Urena SURGEON: Alan Carranza DO HOSIERY OPERATOR: DATE OF PROCEDURE: 12/16/2016 PREOPERATIVE DIAGNOSES: Pneumothorax while on vent with associated hypotension. POSTOPERATIVE DIAGNOSES: Pneumothorax while on vent with associated hypotension. PROCEDURE PERFORMED: Placement of left pleural chest tube, 14-Monegasque. BRIEF HISTORY: Mrs. Llamas is a 66-year-old, white female, who was diagnosed with a large left pneumothorax on this morning's x-ray, which was new. She is on the ventilator and under positive pressures and we have been asked to place an urgent chest tube. Informed consent was obtained from her family. DESCRIPTION OF PROCEDURE: The left anterior and lateral chest wall was sterilely prepped and draped. 1% lidocaine was used to infiltrate a skin wheal and the deeper tissues in an inframammary crease and along the anterior axillary line. A stab incision was made. The needle was introduced into the pleural space aspirating air and a guidewire was placed through the needle and dilators placed over the guidewire and then 14-Monegasque catheter was placed over the guidewire and the guidewire and dilator were removed. Chest tube was placed to suction. The patient tolerated the procedure well. A chest x-ray is pending. ALAN CARRANZA DO MCB/modl /[id number] d: 04/09/17 1430 t: 04/10/17 1009, OPERATIVE SUMMARY
--- NOTE | ~2016-12-04 | CON ---
PATIENT'S NAME: CARLYN KENT [facility] AGE: 66 Y [address] ROOM: [address] [place], [place] [address] LOCATION: GICU ADMIT DATE: 12/04/2016 Consultation DISCHARGE DATE: 12/16/2016 FAMILY PHYSICIAN: Bharathi Carreno PA-C ATTENDING PHYSICIAN: Saman Urena DATE OF CONSULTATION: 12/04/2016 REFERRING PHYSICIAN: Alan Ray DO INDICATION: Abnormal CT with new interstitial findings. SUBJECTIVE: This is a 66-year-old female, who has been ill with low blood sugars, fatigue, weight loss, poor appetite for over a month now, who was transferred here for a higher level of care from [place] after CT of the abdomen done for nausea on day 2 of her hospital stay showed new lower lung infiltrates. She has extensive history of rheumatoid arthritis since age of 41, which she was followed by Dr. Cottrell for and also a history of long-term immunosuppression. Most recently, her rheumatoid arthritis regimen has been Plaquenil, prednisone, and she recently had Remicade infusions initiated. She feels her issues all started when her prednisone dose was adjusted a month ago. She has a history of seeing a engineering technology instructor, which she last saw 2 years ago. She has a history of lung nodules with biopsy performed on June 07, 2014, showing no malignancy. The patient reports that she was told the nodules were all secondary to her rheumatoid arthritis, and she has not had any further followup. She denies any history of asthma, COPD, PE, DVT. She is a smoker for 30 years and quit 20 years ago. She denies any history of PFTs, although her record shows she might have had some in [place]. She reports that she was recently started on oxygen at night and reports excessive daytime sleepiness but feels she had a sleep study done, that was normal recently. She has noted worsening shortness of breath, which her family feels has been significant over the last month. She denies any cough, wheezing, hemoptysis, or edema. She does not use inhalers at home. She was noted to be febrile starting yesterday with a temperature of 102. PAST MEDICAL HISTORY: 1. Rheumatoid arthritis. 2. Immunosuppression. 3. Pyoderma gangrenosum. 4. Chronic pancreatitis. 5. Chronic pain with a neurostimulator. 6. History of lung nodules with history of lung biopsy. 7. Diabetes. 8. Hypertension. PATIENT'S NAME: CARLYN KENT [facility] AGE: 66 Y [address] ROOM: [address] [place], [place] [address] LOCATION: GICU ADMIT DATE: 12/04/2016 Consultation DISCHARGE DATE: 12/16/2016 FAMILY PHYSICIAN: Bharathi Carreno PA-C ATTENDING PHYSICIAN: Saman Urena ALLERGIES: SEE MAR. MEDICATIONS: See DEC. FAMILY HISTORY: Negative for heart disease or lung disease. SOCIAL HISTORY: She has a history of tobacco use for 30 years and quit 20 years ago. She denies any alcohol use. REVIEW OF SYSTEMS: A 12-point review of systems is negative except for what is noted in the HPI. PHYSICAL EXAMINATION: VITAL SIGNS: Blood pressure 137/58, pulse 83, respirations 14, temp 97.6. She is 93% on 3 L nasal cannula. GENERAL: This is a 66-year-old, well developed, well nourished, ill and elderly appearing female, in no acute distress at the time of exam. She is alert and oriented x3. HEENT: Head: Normocephalic and atraumatic. Eyes are clear. NECK: Supple. No adenopathy. No carotid bruits or JVD. LUNGS: Bilateral crackles without wheezes. HEART: Regular rate and rhythm without murmur, gallop, or rub. ABDOMEN: Soft, nontender, nondistended. Bowel sounds x4. EXTREMITIES: No cyanosis, clubbing, or edema. DIAGNOSTIC DATA: Includes sodium 136, potassium 3.1, BUN 8, creatinine 0.5, glucose 63, calcium 7.3. WBC 7.9, hemoglobin 8.5, hematocrit 26.5, platelets 274. ASSESSMENT: 1. Abnormal chest CT with bilateral infiltrates and cystic lesion, which were personally reviewed by Dr. Boyd. This is concerning for atypical infection versus rheumatoid arthritis versus interstitial lung disease. 2. Acute respiratory failure due to abnormal chest CT with bilateral infiltrates and cystic lesion. 3. Rheumatoid arthritis, on multiple medications. 4. Chronic immunosuppression. 5. High-risk medications. 6. Nocturnal hypoxia without obstructive sleep apnea. 7. History of restrictive lung disease and pulmonary fibrosis. PATIENT'S NAME: CARLYN KENT [facility] AGE: 66 Y [address] ROOM: [place] [address] LOCATION: GICU ADMIT DATE: 12/04/2016 Consultation DISCHARGE DATE: 12/16/2016 FAMILY PHYSICIAN: Bharathi Carreno PA-C ATTENDING PHYSICIAN: Saman Urena PLAN: We will plan for bronchoscopy with BAL and transbronchial biopsies. Indications, risks, benefits, and alternatives were discussed with the patient, who agreed to the procedure. We will have her be n.p.o. after midnight. She will continue with her rheumatoid arthritis medications, IV antibiotics, incentive spirometer, and flutter valve. Titrate FiO2 as tolerated. Further recommendations will be made after the results of the procedure available. Thank you for the consult and opportunity to participate in this patient's care. CHERRI LR APRN FOR GABRIELA BOYD MD [facility]/modl /[id number] d: 12/29/162126 t: 03/10/17 1350, CONSULTATION REPORT
[2016-12-04] MEDS ORDERED: CALMOSEPTINE OI71 GM TOP (00:38)
[2016-12-04] MEDS ORDERED: FLORASTOR250 MG PO (00:39)
[2016-12-04] MEDS ORDERED: CREON 121 CAP PO (00:39)
[2016-12-04] MEDS ORDERED: FLONASE 50 MCG/16 GM NOSE (00:43)
[2016-12-04] MEDS ORDERED: SANTYL30 GM TOP (00:43)
[2016-12-04] MEDS ORDERED: VITAMIN B-121000 MCG PO (00:44)
[2016-12-04] MEDS ORDERED: C-10001000 MG PO (00:44)
[2016-12-04] MEDS ORDERED: VITAMIN D-32000 UNI1 PO (00:44)
[2016-12-04] MEDS ORDERED: BIOTIN5000 MCG PO (00:45)
[2016-12-04] MEDS ORDERED: DELTASONE10 MG PO (00:46)
[2016-12-04] MEDS ORDERED: DESYREL50 MG PO (00:46)
[2016-12-04] MEDS ORDERED: CYMBALTA60 MG PO (00:47)
[2016-12-04] MEDS ORDERED: COREG12.5 MG PO (00:48)
[2016-12-04] MEDS ORDERED: DURAGESIC 50MC50 MCG TOP (00:48)
[2016-12-04] MEDS ORDERED: TRICOR145 MG PO (00:49)
[2016-12-04] MEDS ORDERED: PLAQUENIL200 M1 PO (00:51)
[2016-12-04] MEDS ORDERED: ARAVA20 MG PO (00:52)
[2016-12-04] MEDS ORDERED: LEVOTHROID (S112 MCG PO (00:52)
[2016-12-04] MEDS ORDERED: PRILOSEC20 MG PO (00:53)
[2016-12-04 03:47] LABS: BASOPHIL % 0.1 %; HEMATOCRIT 26.5 % (33.0-46.0); HEMOGLOBIN 8.5 g/dL (10.0-15.0); IMMATURE GRANULOCYTE # 0.1 K/uL (0.0-0.3); IMMATURE GRANULOCYTE % 1.8 %; LYMPHOCYTE # 0.7 K/uL (0.8-4.0); LYMPHOCYTE % 8.5 %; MCHC 32.1 gm/dL (32.0-36.5); MCV 96.7 fl (83.0-98.0); MONOCYTE # 0.4 K/uL (0.0-1.0); MONOCYTE % 5.1 %; MPV 9.6 fl (9.4-12.4); NEUTROPHIL # (ANC) 6.7 K/uL (1.8-7.8); NEUTROPHIL % 84.5 %; NRBC % 0 /100WBC (0-0.00); PLATELET COUNT 274 K/uL (150-450); RBC 2.74 M/uL (3.50-5.50); RDW-CV 15.3 % (11.9-14.6); WBC 7.9 K/uL (4.0-11.0)
[2016-12-04 04:08] LABS: ALK PHOS 30 IU/L (33-138); ALT 32 IU/L (12-78); ANION GAP 9.1 (10.0-19.0); AST 64 IU/L (10-40); BLOOD UREA NITROGEN 8 mg/dL (6-24); CHLORIDE 104 mMol/L (96-110); CO2 26 mMol/L (22-32); CREATININE 0.5 mg/dL (0.5-1.1); ESTIMATED GFR (MDRD EQUATION) > 60; MAGNESIUM 1.8 mg/dL (1.3-2.6); POTASSIUM 3.1 mMol/L (3.7-5.1); SODIUM 136 mMol/L (135-145); TOTAL BILIRUBIN 0.6 mg/dL (0.0-1.5); TOTAL PROTEIN 5.2 g/dL (6.0-8.4)
[2016-12-04 04:21] LABS: ALBUMIN 1.8 gm/dL (3.5-5.0); CALCIUM 7.3 mg/dL (8.5-10.5); PHOSPHORUS 1.6 mg/dL (2.5-4.9)
[2016-12-04] MEDS ORDERED: GLUCOPHAGE500 MG PO (08:24)
[2016-12-04] MEDS ORDERED: FLEXERIL10 MG PO (08:24)
[2016-12-04] MEDS ORDERED: VOLTAREN 1% GE100 GM TOP (08:25)
[2016-12-04] MEDS ORDERED: FISH OIL 1,2001 EAC1 PO (08:25)
[2016-12-04] MEDS ORDERED: HYDROCODON-ACE1 EAC4 PO (08:25)
[2016-12-04] MEDS ORDERED: CINNAMON500 MG PO (08:26)
[2016-12-04] MEDS ORDERED: MAGNESIUM250 M1 PO (08:26)
[2016-12-04] MEDS ORDERED: COQ-10100 MG PO (08:27)
[2016-12-04] MEDS ORDERED: RED YEAST RICE600 M1 PO (08:27)
[2016-12-04] MEDS ORDERED: THERAGRAN-M1 TAB PO (08:27)
[2016-12-04] MEDS ORDERED: VITAMIN E1000 UNI3 PO (08:27)
[2016-12-05 04:39] LABS: HEMOGLOBIN 9.3 g/dL (10.0-15.0); MCH 30.6 pg (27.0-34.0); MCHC 32.1 gm/dL (32.0-36.5); MCV 95.4 fl (83.0-98.0); MPV 9.1 fl (9.4-12.4); PLATELET COUNT 278 K/uL (150-450); RBC 3.04 M/uL (3.50-5.50); RDW-CV 15.4 % (11.9-14.6); WBC 7.9 K/uL (4.0-11.0)
[2016-12-05 04:54] LABS: ANION GAP 11.5 (10.0-19.0); BLOOD UREA NITROGEN 6 mg/dL (6-24); CALCIUM 7.7 mg/dL (8.5-10.5); CHLORIDE 103 mMol/L (96-110); CO2 24 mMol/L (22-32); CREATININE 0.5 mg/dL (0.5-1.1); ESTIMATED GFR (MDRD EQUATION) > 60; PHOSPHORUS 2.2 mg/dL (2.5-4.9); POTASSIUM 3.5 mMol/L (3.7-5.1); SODIUM 135 mMol/L (135-145)
[2016-12-05 06:01] LABS: ABSOLUTE NEUTROPHIL CT (ANC) 7.2 K/uL (1.8-7.8); BANDED NEUTROPHIL # 0.9 K/uL (0.0-0.1); BANDED NEUTROPHILS % 12 %; LYMPHOCYTE # 0.3 K/uL (0.8-4.0); LYMPHOCYTE % 4 %; MONOCYTE # 0.2 K/uL (0.0-1.0); SEGMENTED NEUTROPHIL # 6.2 K/uL (1.8-7.8); SEGMENTED NEUTROPHIL % 79 %
[2016-12-06 05:45] LABS: HEMATOCRIT 27.1 % (33.0-46.0); HEMOGLOBIN 8.7 g/dL (10.0-15.0); MCH 30.9 pg (27.0-34.0); MCHC 32.1 gm/dL (32.0-36.5); MCV 96.1 fl (83.0-98.0); MPV 9.3 fl (9.4-12.4); PLATELET COUNT 247 K/uL (150-450); RBC 2.82 M/uL (3.50-5.50); RDW-CV 15.9 % (11.9-14.6); WBC 7.4 K/uL (4.0-11.0)
[2016-12-06 06:06] LABS: ANION GAP 11.9 (10.0-19.0); BLOOD UREA NITROGEN 8 mg/dL (6-24); CALCIUM 7.5 mg/dL (8.5-10.5); CHLORIDE 104 mMol/L (96-110); CO2 25 mMol/L (22-32); CREATININE 0.4 mg/dL (0.5-1.1); ESTIMATED GFR (MDRD EQUATION) > 60; POTASSIUM 3.9 mMol/L (3.7-5.1); SODIUM 137 mMol/L (135-145)
[2016-12-06 07:12] LABS: ABSOLUTE NEUTROPHIL CT (ANC) 6.4 K/uL (1.8-7.8); LYMPHOCYTE # 0.6 K/uL (0.8-4.0); LYMPHOCYTE % 8 %; MONOCYTE # 0.4 K/uL (0.0-1.0); SEGMENTED NEUTROPHIL # 6.4 K/uL (1.8-7.8); SEGMENTED NEUTROPHIL % 86 %
[2016-12-07 03:56] LABS: ANION GAP 10.3 (10.0-19.0); CALCIUM 7.8 mg/dL (8.5-10.5); CHLORIDE 100 mMol/L (96-110); CO2 29 mMol/L (22-32); CREATININE 0.4 mg/dL (0.5-1.1); ESTIMATED GFR (MDRD EQUATION) > 60; POTASSIUM 3.3 mMol/L (3.7-5.1); SODIUM 136 mMol/L (135-145)
[2016-12-07 03:57] LABS: BLOOD UREA NITROGEN 13 mg/dL (6-24)
[2016-12-08 06:16] LABS: BASOPHIL % 0.1 %; HEMATOCRIT 26.8 % (33.0-46.0); HEMOGLOBIN 8.6 g/dL (10.0-15.0); IMMATURE GRANULOCYTE # 0.2 K/uL (0.0-0.3); IMMATURE GRANULOCYTE % 2.5 %; LYMPHOCYTE # 0.5 K/uL (0.8-4.0); MCH 30.8 pg (27.0-34.0); MCHC 32.1 gm/dL (32.0-36.5); MCV 96.1 fl (83.0-98.0); MONOCYTE # 0.3 K/uL (0.0-1.0); MPV 9.7 fl (9.4-12.4); NEUTROPHIL # (ANC) 7.5 K/uL (1.8-7.8); NEUTROPHIL % 88.4 %; NRBC % 0.2 /100WBC (0-0.00); PLATELET COUNT 251 K/uL (150-450); RBC 2.79 M/uL (3.50-5.50); RDW-CV 15.6 % (11.9-14.6); WBC 8.5 K/uL (4.0-11.0)
[2016-12-08 06:44] LABS: ANION GAP 11.6 (10.0-19.0); BLOOD UREA NITROGEN 15 mg/dL (6-24); CALCIUM 7.8 mg/dL (8.5-10.5); CHLORIDE 101 mMol/L (96-110); CO2 25 mMol/L (22-32); CREATININE 0.4 mg/dL (0.5-1.1); ESTIMATED GFR (MDRD EQUATION) > 60; POTASSIUM 3.6 mMol/L (3.7-5.1); SODIUM 134 mMol/L (135-145)
[2016-12-09 03:44] LABS: HEMATOCRIT 27.9 % (33.0-46.0); MCH 30.9 pg (27.0-34.0); MCHC 32.3 gm/dL (32.0-36.5); MCV 95.9 fl (83.0-98.0); MPV 10.1 fl (9.4-12.4); PLATELET COUNT 225 K/uL (150-450); RBC 2.91 M/uL (3.50-5.50); RDW-CV 15.9 % (11.9-14.6); WBC 7.9 K/uL (4.0-11.0)
[2016-12-09 04:07] LABS: BLOOD UREA NITROGEN 13 mg/dL (6-24); CALCIUM 7.6 mg/dL (8.5-10.5); CHLORIDE 99 mMol/L (96-110); CO2 28 mMol/L (22-32); CREATININE 0.4 mg/dL (0.5-1.1); ESTIMATED GFR (MDRD EQUATION) > 60; PHOSPHORUS 2.6 mg/dL (2.5-4.9); SODIUM 134 mMol/L (135-145)
[2016-12-09 04:08] LABS: ALBUMIN 1.6 gm/dL (3.5-5.0)
[2016-12-09 05:08] LABS: ABSOLUTE NEUTROPHIL CT (ANC) 7.7 K/uL (1.8-7.8); BANDED NEUTROPHIL # 1.7 K/uL (0.0-0.1); BANDED NEUTROPHILS % 21 %; LYMPHOCYTE # 0.2 K/uL (0.8-4.0); LYMPHOCYTE % 3 %; SEGMENTED NEUTROPHIL % 76 %
[2016-12-10 06:24] LABS: HEMATOCRIT 27.9 % (33.0-46.0); HEMOGLOBIN 9.1 g/dL (10.0-15.0); MCHC 32.6 gm/dL (32.0-36.5); MCV 94.9 fl (83.0-98.0); PLATELET COUNT 240 K/uL (150-450); RBC 2.94 M/uL (3.50-5.50); WBC 10.7 K/uL (4.0-11.0)
[2016-12-10 06:40] LABS: BLOOD UREA NITROGEN 14 mg/dL (6-24); CALCIUM 7.9 mg/dL (8.5-10.5); CHLORIDE 100 mMol/L (96-110); CO2 26 mMol/L (22-32); CREATININE 0.4 mg/dL (0.5-1.1); ESTIMATED GFR (MDRD EQUATION) > 60; PHOSPHORUS 2.4 mg/dL (2.5-4.9); SODIUM 132 mMol/L (135-145)
[2016-12-10 06:42] LABS: ALBUMIN 1.5 gm/dL (3.5-5.0); ANION GAP 10.3 (10.0-19.0); POTASSIUM 4.3 mMol/L (3.7-5.1)
[2016-12-10 07:22] LABS: LYMPHOCYTE # 0.3 K/uL (0.8-4.0); LYMPHOCYTE % 3 %; MONOCYTE # 0.2 K/uL (0.0-1.0); SEGMENTED NEUTROPHIL % 93 %
[2016-12-10 07:23] LABS: ABSOLUTE NEUTROPHIL CT (ANC) 10.1 K/uL (1.8-7.8); BANDED NEUTROPHIL # 0.1 K/uL (0.0-0.1); BANDED NEUTROPHILS % 1 %
[2016-12-11 05:51] LABS: HEMATOCRIT 27.2 % (33.0-46.0); HEMOGLOBIN 8.8 g/dL (10.0-15.0); MCHC 32.4 gm/dL (32.0-36.5); MCV 95.8 fl (83.0-98.0); PLATELET COUNT 199 K/uL (150-450); RBC 2.84 M/uL (3.50-5.50); RDW-CV 15.9 % (11.9-14.6); WBC 10.5 K/uL (4.0-11.0)
[2016-12-11 06:03] LABS: ANION GAP 11.1 (10.0-19.0); BLOOD UREA NITROGEN 14 mg/dL (6-24); CALCIUM 7.7 mg/dL (8.5-10.5); CHLORIDE 98 mMol/L (96-110); CO2 30 mMol/L (22-32); CREATININE 0.4 mg/dL (0.5-1.1); ESTIMATED GFR (MDRD EQUATION) > 60; PHOSPHORUS 3.3 mg/dL (2.5-4.9); POTASSIUM 4.1 mMol/L (3.7-5.1); SODIUM 135 mMol/L (135-145)
[2016-12-11 06:09] LABS: ALBUMIN 1.5 gm/dL (3.5-5.0)
[2016-12-11 07:31] LABS: BANDED NEUTROPHIL # 0.6 K/uL (0.0-0.1); BANDED NEUTROPHILS % 6 %; LYMPHOCYTE # 0.2 K/uL (0.8-4.0); LYMPHOCYTE % 2 %; SEGMENTED NEUTROPHIL # 9.4 K/uL (1.8-7.8); SEGMENTED NEUTROPHIL % 89 %
[2016-12-12 05:53] LABS: BASOPHIL % 0.2 %; HEMATOCRIT 27.3 % (33.0-46.0); HEMOGLOBIN 8.8 g/dL (10.0-15.0); IMMATURE GRANULOCYTE # 0.2 K/uL (0.0-0.3); IMMATURE GRANULOCYTE % 1.9 %; LYMPHOCYTE # 0.4 K/uL (0.8-4.0); LYMPHOCYTE % 3.2 %; MCHC 32.2 gm/dL (32.0-36.5); MCV 96.1 fl (83.0-98.0); MONOCYTE # 0.2 K/uL (0.0-1.0); MONOCYTE % 2.1 %; MPV 10.2 fl (9.4-12.4); NEUTROPHIL # (ANC) 10.5 K/uL (1.8-7.8); NEUTROPHIL % 92.6 %; NRBC % 0 /100WBC (0-0.00); RBC 2.84 M/uL (3.50-5.50); RDW-CV 16.3 % (11.9-14.6); WBC 11.3 K/uL (4.0-11.0)
[2016-12-12 06:07] LABS: ANION GAP 9.2 (10.0-19.0); BLOOD UREA NITROGEN 15 mg/dL (6-24); CALCIUM 7.8 mg/dL (8.5-10.5); CHLORIDE 98 mMol/L (96-110); CO2 30 mMol/L (22-32); CREATININE 0.4 mg/dL (0.5-1.1); ESTIMATED GFR (MDRD EQUATION) > 60; PHOSPHORUS 2.5 mg/dL (2.5-4.9); POTASSIUM 4.2 mMol/L (3.7-5.1); SODIUM 133 mMol/L (135-145)
[2016-12-12 06:08] LABS: ALBUMIN 1.5 gm/dL (3.5-5.0)
[2016-12-12 06:45] LABS: PLATELET COUNT 189 K/uL (150-450)
[2016-12-12 13:26] LABS: BICARBONATE 31.3 mmol/L (18.0-23.0); PCO2 43 mmHg (35-45)
[2016-12-12 13:31] LABS: PO2 54 mmHg (80-90)
[2016-12-12 17:03] LABS: BICARBONATE 29.2 mmol/L (18.0-23.0); PCO2 46 mmHg (35-45); PO2 67 mmHg (80-90)
[2016-12-13 04:14] LABS: BICARBONATE 32.3 mmol/L (18.0-23.0); PCO2 51 mmHg (35-45)
[2016-12-13 04:17] LABS: PO2 81 mmHg (80-90)
[2016-12-13 05:10] LABS: HEMATOCRIT 24.9 % (33.0-46.0); HEMOGLOBIN 8.1 g/dL (10.0-15.0); MCH 31.2 pg (27.0-34.0); MCHC 32.5 gm/dL (32.0-36.5); MCV 95.8 fl (83.0-98.0); PLATELET COUNT 195 K/uL (150-450); RDW-CV 16.5 % (11.9-14.6); WBC 13.5 K/uL (4.0-11.0)
[2016-12-13 05:35] LABS: ABSOLUTE NEUTROPHIL CT (ANC) 13.2 K/uL (1.8-7.8); BANDED NEUTROPHIL # 1.2 K/uL (0.0-0.1); BANDED NEUTROPHILS % 9 %; LYMPHOCYTE # 0.1 K/uL (0.8-4.0); LYMPHOCYTE % 1 %; MONOCYTE # 0.1 K/uL (0.0-1.0); SEGMENTED NEUTROPHIL % 89 %
[2016-12-13 05:41] LABS: ANION GAP 11.3 (10.0-19.0); BLOOD UREA NITROGEN 15 mg/dL (6-24); CALCIUM 7.6 mg/dL (8.5-10.5); CHLORIDE 100 mMol/L (96-110); CO2 28 mMol/L (22-32); CREATININE 0.3 mg/dL (0.5-1.1); ESTIMATED GFR (MDRD EQUATION) > 60; PHOSPHORUS 2.8 mg/dL (2.5-4.9); POTASSIUM 4.3 mMol/L (3.7-5.1); SODIUM 135 mMol/L (135-145)
[2016-12-13 05:43] LABS: ALBUMIN 1.4 gm/dL (3.5-5.0)
[2016-12-14 04:10] LABS: BICARBONATE 31.3 mmol/L (18.0-23.0); PCO2 44 mmHg (35-45); PO2 70 mmHg (80-90)
[2016-12-14 05:15] LABS: BASOPHIL % 0.1 %; EOSINOPHIL % 0.1 %; HEMATOCRIT 23.7 % (33.0-46.0); IMMATURE GRANULOCYTE # 0.2 K/uL (0.0-0.3); IMMATURE GRANULOCYTE % 1.7 %; LYMPHOCYTE # 0.3 K/uL (0.8-4.0); LYMPHOCYTE % 2.1 %; MCH 31.4 pg (27.0-34.0); MCHC 32.5 gm/dL (32.0-36.5); MCV 96.7 fl (83.0-98.0); MONOCYTE # 0.2 K/uL (0.0-1.0); MONOCYTE % 1.8 %; MPV 10.5 fl (9.4-12.4); NEUTROPHIL # (ANC) 11.7 K/uL (1.8-7.8); NEUTROPHIL % 94.2 %; NRBC % 0 /100WBC (0-0.00); PLATELET COUNT 195 K/uL (150-450); RBC 2.45 M/uL (3.50-5.50); RDW-CV 16.3 % (11.9-14.6); WBC 12.4 K/uL (4.0-11.0)
[2016-12-14 05:18] LABS: HEMOGLOBIN 7.7 g/dL (10.0-15.0)
[2016-12-14 05:33] LABS: ALK PHOS 61 IU/L (33-138); ALT 23 IU/L (12-78); ANION GAP 8.1 (10.0-19.0); AST 32 IU/L (10-40); BLOOD UREA NITROGEN 17 mg/dL (6-24); CALCIUM 7.5 mg/dL (8.5-10.5); CHLORIDE 102 mMol/L (96-110); CO2 30 mMol/L (22-32); CREATININE 0.3 mg/dL (0.5-1.1); ESTIMATED GFR (MDRD EQUATION) > 60; POTASSIUM 4.1 mMol/L (3.7-5.1); SODIUM 136 mMol/L (135-145)
[2016-12-14 05:38] LABS: ALBUMIN 1.4 gm/dL (3.5-5.0); TOTAL BILIRUBIN 0.4 mg/dL (0.0-1.5); TOTAL PROTEIN 4.4 g/dL (6.0-8.4)
[2016-12-15 03:54] LABS: BICARBONATE 35.7 mmol/L (18.0-23.0); PCO2 48 mmHg (35-45)
[2016-12-15 03:55] LABS: PO2 53 mmHg (80-90)
[2016-12-15 05:10] LABS: HEMATOCRIT 21.7 % (33.0-46.0); MCH 31.5 pg (27.0-34.0); MCHC 32.3 gm/dL (32.0-36.5); MCV 97.7 fl (83.0-98.0); MPV 10.8 fl (9.4-12.4); PLATELET COUNT 194 K/uL (150-450); RBC 2.22 M/uL (3.50-5.50); RDW-CV 16.8 % (11.9-14.6)
[2016-12-15 05:28] LABS: BLOOD UREA NITROGEN 18 mg/dL (6-24); CALCIUM 7.6 mg/dL (8.5-10.5); CHLORIDE 101 mMol/L (96-110); CO2 32 mMol/L (22-32); CREATININE 0.4 mg/dL (0.5-1.1); ESTIMATED GFR (MDRD EQUATION) > 60; SODIUM 137 mMol/L (135-145)
[2016-12-15 05:29] LABS: ALBUMIN 1.8 gm/dL (3.5-5.0); PHOSPHORUS 1.7 mg/dL (2.5-4.9)
[2016-12-15 06:29] LABS: ABSOLUTE NEUTROPHIL CT (ANC) 10.8 K/uL (1.8-7.8); BANDED NEUTROPHIL # 0.4 K/uL (0.0-0.1); BANDED NEUTROPHILS % 4 %; LYMPHOCYTE # 0.1 K/uL (0.8-4.0); LYMPHOCYTE % 1 %; MONOCYTE # 0.1 K/uL (0.0-1.0); SEGMENTED NEUTROPHIL # 10.3 K/uL (1.8-7.8); SEGMENTED NEUTROPHIL % 94 %
[2016-12-15 12:51] LABS: BILIRUBIN URINE NEGATIVE (NEGATIVE); BLOOD URINE 25 /UL (NEGATIVE); COLOR URINE YELLOW (YELLOW); GLUCOSE URINE 1000 mg/dL (NEGATIVE); KETONE URINE NEGATIVE (NEGATIVE); LEUKOCYTES URINE 25 /UL (NEGATIVE); NITRITE URINE NEGATIVE (NEGATIVE); PROTEIN URINE 15 mg/dL (NEGATIVE); TURBIDITY URINE 3+ (CLEAR); UROBILINOGEN URINE 1 mg/dL (NORMAL)
[2016-12-15 13:01] LABS: BACTERIA URINE NEGATIVE (NEGATIVE); EPITHELIAL URINE RARE #/HPF (NEGATIVE); WBC URINE 0-2 #/HPF (NEGATIVE); YEAST URINE MANY (NEGATIVE)
[2016-12-15 15:58] LABS: BICARBONATE 36.1 mmol/L (18.0-23.0); PCO2 52 mmHg (35-45)
[2016-12-15 15:59] LABS: PO2 82 mmHg (80-90)
[2016-12-15 18:04] LABS: HEMATOCRIT 23.5 % (33.0-46.0); HEMOGLOBIN 7.6 g/dL (10.0-15.0)
[2016-12-15 18:24] LABS: ANION GAP 8.1 (10.0-19.0); BLOOD UREA NITROGEN 18 mg/dL (6-24); CALCIUM 7.8 mg/dL (8.5-10.5); CHLORIDE 99 mMol/L (96-110); CO2 34 mMol/L (22-32); CREATININE 0.5 mg/dL (0.5-1.1); ESTIMATED GFR (MDRD EQUATION) > 60; POTASSIUM 4.1 mMol/L (3.7-5.1); SODIUM 137 mMol/L (135-145)
[2016-12-15 18:28] LABS: PHOSPHORUS 1.9 mg/dL (2.5-4.9)
[2016-12-15 23:34] LABS: BICARBONATE 39.5 mmol/L (18.0-23.0)
[2016-12-15 23:43] LABS: PCO2 90 mmHg (35-45); PO2 62 mmHg (80-90)
[2016-12-15 23:50] LABS: HEMATOCRIT 23.1 % (33.0-46.0)
[2016-12-15 23:53] LABS: HEMOGLOBIN 7.4 g/dL (10.0-15.0)
[2016-12-16 01:15] LABS: BICARBONATE 38.1 mmol/L (18.0-23.0); PCO2 77 mmHg (35-45); PO2 85 mmHg (80-90)
[2016-12-16 04:57] LABS: BICARBONATE 43.5 mmol/L (18.0-23.0); PO2 85 mmHg (80-90)
[2016-12-16 05:10] LABS: PCO2 77 mmHg (35-45)
[2016-12-16 05:24] LABS: HEMATOCRIT 22.3 % (33.0-46.0); MCH 31.5 pg (27.0-34.0); MCHC 31.4 gm/dL (32.0-36.5); MCV 100.5 fl (83.0-98.0); MPV 10.6 fl (9.4-12.4); PLATELET COUNT 197 K/uL (150-450); RBC 2.22 M/uL (3.50-5.50); RDW-CV 16.8 % (11.9-14.6); WBC 11.1 K/uL (4.0-11.0)
[2016-12-16 05:46] LABS: ALBUMIN 3.5 gm/dL (3.5-5.0); ALK PHOS 72 IU/L (33-138); ALT 76 IU/L (12-78); AST 197 IU/L (10-40); BLOOD UREA NITROGEN 16 mg/dL (6-24); CALCIUM 7.7 mg/dL (8.5-10.5); CHLORIDE 98 mMol/L (96-110); CREATININE 0.4 mg/dL (0.5-1.1); ESTIMATED GFR (MDRD EQUATION) > 60; MAGNESIUM 2.1 mg/dL (1.3-2.6); POTASSIUM 4.1 mMol/L (3.7-5.1); SODIUM 141 mMol/L (135-145); TOTAL PROTEIN 5.9 g/dL (6.0-8.4)
[2016-12-16 05:48] LABS: ANION GAP 10.1 (10.0-19.0); CO2 37 mMol/L (22-32); TOTAL BILIRUBIN 0.9 mg/dL (0.0-1.5)
[2016-12-16 05:53] LABS: ABSOLUTE NEUTROPHIL CT (ANC) 10.7 K/uL (1.8-7.8); BANDED NEUTROPHIL # 2.1 K/uL (0.0-0.1); BANDED NEUTROPHILS % 19 %; LYMPHOCYTE # 0.1 K/uL (0.8-4.0); LYMPHOCYTE % 1 %; SEGMENTED NEUTROPHIL # 8.6 K/uL (1.8-7.8); SEGMENTED NEUTROPHIL % 77 %
[2016-12-16 11:17] LABS: BICARBONATE 40.3 mmol/L (18.0-23.0); PCO2 56 mmHg (35-45); PO2 181 mmHg (80-90)
== END 2016-12-16 21:48 | disposition expired | DRG 166 ==
LOC: GICU 00:01 → GPCU 00:01 → GICU 00:01
PROVIDERS: Anesthesiology Critical Care Medicine; Family Medicine; Hospitalist; Internal Medicine; Internal Medicine Critical Care Medicine; ADMIT Internal Medicine
PROC: 0BBG8ZX Excision of Left Upper Lung Lobe, Via Natural or Artificial Opening Endoscopic, Diagnostic (ICD-10-PCS; principal; 2016-12-05)
PROC: 0B988ZX Drainage of Left Upper Lobe Bronchus, Via Natural or Artificial Opening Endoscopic, Diagnostic (ICD-10-PCS; principal; 2016-12-05)
PROC: 0BH17EZ Insertion of Endotracheal Airway into Trachea, Via Natural or Artificial Opening (ICD-10-PCS; 2016-12-12)
PROC: 5A1955Z Respiratory Ventilation, Greater than 96 Consecutive Hours (ICD-10-PCS; 2016-12-12)
PROC: 0W9B30Z Drainage of Left Pleural Cavity with Drainage Device, Percutaneous Approach (ICD-10-PCS; 2016-12-16)
DX: J96.21 Acute and chronic respiratory failure with hypoxia (principal); E43 Unspecified severe protein-calorie malnutrition; B25.0 Cytomegaloviral pneumonitis; A41.9 Sepsis, unspecified organism; E87.3 Alkalosis; L89.153 Pressure ulcer of sacral region, stage 3; Z51.5 Encounter for palliative care; L88 Pyoderma gangrenosum; E09.9 Drug or chemical induced diabetes mellitus without complications; N39.0 Urinary tract infection, site not specified; I82.431 Acute embolism and thrombosis of right popliteal vein; J93.9 Pneumothorax, unspecified; M06.9 Rheumatoid arthritis, unspecified; Z79.52 Long term (current) use of systemic steroids; T38.0X5A Adverse effect of glucocorticoids and synthetic analogues, initial encounter; G89.29 Other chronic pain; I10 Essential (primary) hypertension; M81.0 Age-related osteoporosis without current pathological fracture; Z79.84 Long term (current) use of oral hypoglycemic drugs; E03.9 Hypothyroidism, unspecified; E83.39 Other disorders of phosphorus metabolism; E87.70 Fluid overload, unspecified; D63.8 Anemia in other chronic diseases classified elsewhere; D64.9 Anemia, unspecified; Z66 Do not resuscitate
CPT/HCPCS: C1751; C1894; C8929; J1570; J1644; J1650; J1720; J1940; J1956; J2250; J2405; J2920; J2930; J3010; J3480; J7030; J7040; J7050; J7060; J7121; J7512; P9047